=== PATIENT | male | born 1980 | race African-American/Black ===

== ENCOUNTER 2019-01-15 16:54 | Emergency (ER) | payer SELFPAY ==
[2019-01-15] MEDS ORDERED: Triamcinolone 40 MG/ML VIAL ONE (17:24)
== END 2019-01-15 17:50 | disposition home or self-care (01) ==
LOC: MADERS 16:54
DX: L23.7 Allergic contact dermatitis due to plants, except food (principal)
CPT/HCPCS: 96372; 99283; J3301